=== PATIENT | female | born 1985 | race Caucasian/White ===

== ENCOUNTER 2017-02-28 20:18 | Emergency (ER) | payer OTHER ==
[2017-02-28] MEDS ORDERED: NS 1,000 ML IV ONE (20:28)
--- NOTE | 2017-02-28 21:13 | EDPHY ---
H & P Stated Complaint: Chills, V&D, stomach cramps since 1500hours. Time Seen by Provider: 02/28/17 20:41 HPI/ROS: This patient has a 6 hour history of diffuse abdominal cramping and vomiting with diarrhea. She reports concurrent onset of diffuse crampy abdominal discomfort mild intensity with several episodes of vomiting and loose watery stools. She now feels sense of generalized weakness associated with her symptoms. Her recent history is notable for clindamycin antibiotic day 10 for sinusitis recently diagnosed by her primary care physician. She notes no exacerbating factors for her abdominal symptoms. Her sinus symptoms have resolved. ROS: No high fevers or chills. She does report some low-grade subjective fevers. HEENT: No sinus pain at this point. No ear pain. No sore throat. No other complaints Neuro: No headache. No focal complaints Pulmonary: No cough. No shortness of breath. Cardiovascular: She reports lightheadedness this afternoon. GI: No bloody stools or dark tarry stools. No hematemesis. No focal pain in her belly. She is not tolerating p.o. intake today since 3:00 p.m. : No urinary symptoms. Last menstrual period was normal timing 20 days ago. Integumentary: No skin rash Endocrine: No symptoms Complete review of symptoms is otherwise negative. Source: Patient, Family (She is accompanied by her ) Exam Limitations: No limitations - Personal History LMP (Females 10-55): 15-21 Days Ago Current Tetanus/Diphtheria Vaccine: Yes Current Tetanus Diphtheria and Acellular Pertussis (TDAP): Yes Tetanus Vaccine Date: 2010 - Medical/Surgical History PMH: G 3 P2 Otherwise healthy. No abdominal surgeries Recent sinusitis treated with clindamycin antibiotic-day 10 Hx Asthma: No Hx Chronic Respiratory Disease: No Hx Diabetes: No Hx Cardiac Disease: No Hx Renal Disease: No Hx Cirrhosis: No Hx Alcoholism: No Hx HIV/AIDS: No Hx Splenectomy or Spleen Trauma: No Other PMH: anxiety, sinus infection at present, asthma. - Family History Significant Family History: No pertinent family hx - Social History Smoking Status: Never smoked Alcohol Use: Rarely Drug Use: None - Physical Exam Exam: General Appearance: Alert, no distress. Eyes: Pupils equal and round no pallor or injection. ENT, Mouth: Mucous membranes moist. Respiratory: There are no retractions, lungs are clear to auscultation. Cardiovascular: Regular rate and rhythm. No murmur gallop or rub Gastrointestinal: Hypoactive bowel sounds, soft, no focal tenderness. Organomegaly. Back: No CVA tenderness Neurological: GCS 15 with no focal deficits. Skin: Warm and dry, no rashes. Musculoskeletal: Neck is supple nontender. Extremities are symmetrical, full range of motion. Psychiatric: Mood and affect normal DIFFERENTIAL DIAGNOSIS: After history and physical exam differential diagnosis was considered for C diff colitis, viral gastroenteritis, food poisoning, dehydration Constitutional: Initial Vital Signs Temperature (C) 37.0 C 02/28/17 20:21 Heart Rate 87 02/28/17 20:21 Respiratory Rate 16 02/28/17 20:21 Blood Pressure 92/67 L 02/28/17 20:21 O2 Sat (%) 97 02/28/17 20:21 O2 Delivery Mode Room Air Allergies/Adverse Reactions: clarithromycin [From Biaxin] Allergy (Intermediate, Verified 02/28/17 20:24) Rash Penicillins Allergy (Intermediate, Verified 02/28/17 20:24) Rash Home Medications: Medication Instructions Recorded Lexapro 02/28/17 Promethazine 25Mg Supp Prepk#4 1 btl TAKEHOME Q6 PRN #1 btl 02/28/17 [Phenergan 25Mg Supp Prepack#4] Vancomycin [Vancomycin (*)] 125 mg PO QID #56 cap 02/28/17 Medical Decision Making ED Course/Re-evaluation: IV attempts x2 failed 3rd IV attempt success 1 L normal saline bolus with subjective improvement in her symptoms and systolic pressure improved increased from 92-105. She also has significant leukocytosis but does not meet sepsis criteria. She has some relief of her nausea with Benadryl and Ativan. (held Zofran due to Lexapro) Stool sample [id number] bloody, concerning clinically for C diff. Discussion: Patient just unclear 10 days of clindamycin now with bloody foul- smelling diarrhea, leukocytosis vomiting and diarrhea concerning for C diff colitis. I spoke with Telma Lopez, infectious disease specialist who agrees with the plan to treat her clinically for C diff colitis with pathogen panel pending and should be back tomorrow. We do not have vancomycin 125 orally present in the clinic so treated her with 1st dose of Flagyl 500 mg p. o. with plan for start the Vanco in the morning - Data Points Laboratory Results: Laboratory Results 02/28/17 21:43 02/28/17 21:43 02/28/17 02/28/17 02/28/17 21:43 21:43 21:43 WBC 19.25 10^3/uL H 10^3/uL (3.80-9.50) RBC 5.10 10^6/uL 10^6/uL (4.18-5.33) Hgb 15.7 g/dL g/dL (12.6-16.3) Hct 45.0 % % (38.0-47.0) MCV 88.2 fL fL (81.5-99.8) MCH 30.8 pg pg (27.9-34.1) MCHC 34.9 g/dL g/dL (32.4-36.7) RDW 12.2 % % (11.5-15.2) Plt Count 211 10^3/uL 10^3/uL (150-400) MPV 9.6 fL fL (8.7-11.7) Neut % (Auto) 93.5 % H % (39.3-74.2) Lymph % (Auto) 2.0 % L % (15.0-45.0) [place] % (Auto) 3.8 % L % (4.5-13.0) Eos % (Auto) 0.1 % L % (0.6-7.6) Baso % (Auto) 0.2 % L % (0.3-1.7) Nucleat RBC Rel Count 0.0 % % (0.0-0.2) Absolute Neuts (auto) 18.03 10^3/uL H 10^3/uL (1.70-6.50) Absolute Lymphs (auto) 0.38 10^3/uL L 10^3/uL (1.00-3.00) Absolute Monos (auto) 0.73 10^3/uL 10^3/uL (0.30-0.80) Absolute Eos (auto) 0.01 10^3/uL L 10^3/uL (0.03-0.40) Absolute Basos (auto) 0.03 10^3/uL 10^3/uL (0.02-0.10) Absolute Nucleated RBC 0.00 10^3/uL 10^3/uL (0-0.01) Immature Gran % 0.4 % % (0.0-1.1) Immature Gran # 0.07 10^3/uL 10^3/uL (0.00-0.10) Sodium 142 mEq/L mEq/L (134-144) Potassium 4.4 mEq/L mEq/L (3.5-5.2) Chloride 102 mEq/L mEq/L (97-110) Carbon Dioxide 22 mEq/l mEq/l (22-31) Anion Gap 18 mEq/L H mEq/L (8-16) BUN 16 mg/dL mg/dL (7-23) Creatinine 0.7 mg/dL mg/dL (0.6-1.0) Estimated GFR > 60 Glucose 138 mg/dL H mg/dL (70-100) Calcium 9.8 mg/dL mg/dL (8.5-10.4) Beta HCG, Qual NEGATIVE Urine Color Urine Appearance Urine pH Ur Specific Kite Urine Protein Urine Ketones Urine Blood Urine Nitrate Urine Bilirubin Urine Urobilinogen Ur Leukocyte Esterase Urine RBC Urine WBC Ur Epithelial Cells Amorphous Sediment Urine Bacteria Urine Mucus Urine Glucose 02/28/17 21:15 WBC RBC Hgb Hct MCV MCH MCHC RDW Plt Count MPV Neut % (Auto) Lymph % (Auto) [place] % (Auto) Eos % (Auto) Baso % (Auto) Nucleat RBC Rel Count Absolute Neuts (auto) Absolute Lymphs (auto) Absolute Monos (auto) Absolute Eos (auto) Absolute Basos (auto) Absolute Nucleated RBC Immature Gran % Immature Gran # Sodium Potassium Chloride Carbon Dioxide Anion Gap BUN Creatinine Estimated GFR Glucose Calcium Beta HCG, Qual Urine Color YELLOW Urine Appearance CLEAR Urine pH 5.5 (5.0-7.5) Ur Specific [place]ite >= 1.030 (1.002-1.030) Urine Protein TRACE H (NEGATIVE) Urine Ketones 1+ H (NEGATIVE) Urine Blood NEGATIVE (NEGATIVE) Urine Nitrate NEGATIVE (NEGATIVE) Urine Bilirubin NEGATIVE (NEGATIVE) Urine Urobilinogen 0.2 EU EU (0.2-1.0) Ur Leukocyte Esterase NEGATIVE (NEGATIVE) Urine RBC 0-1 /hpf /hpf (0-3) Urine WBC 0-1 /hpf /hpf (0-3) Ur Epithelial Cells 2+ /lpf H /lpf (NONE-1+) Amorphous Sediment 2+ /hpf H /hpf (NONE-1+) Urine Bacteria 1+ /hpf H /hpf (NONE SEEN) Urine Mucus 2+ /lpf H /lpf (NONE-1+) Urine Glucose NEGATIVE (NEGATIVE) Medications Given: Discontinued Medications Diphenhydramine HCl (Benadryl Injection) 25 mg IVP EDNOW ONE Stop: 02/28/17 21:08 Last Admin: 02/28/17 21:48 Dose: 25 mg Sodium Chloride (Ns) 1,000 mls @ 0 mls/hr IV ONCE ONE PRN Reason: Wide Open Stop: 02/28/17 20:29 Last Admin: 02/28/17 21:42 Dose: 1,000 mls Departure - Departure Disposition: Home, Routine, Self-Care Clinical Impression: C. difficile enteritis Condition: Good Instructions: [facility] Clostridium Difficile Infection, Patient Information Sheet Additional Instructions: Diagnosis: C diff enteritis Plan: Drink plenty fluids Light diet to feel improved Start vancomycin antibiotic orally in the morning Phenergan suppository if needed for nausea or vomiting. If this does not suffice for nausea, then Kendall ODDeena Call your primary care physician to arrange follow-up appointment for a recheck sometime within the next 2-5 days. Follow up with Dr. Telma oLpez-infectious disease if you're not improving with treatment plan. Referrals: Nicole Kaiser MD [Primary Care Provider] - As per Instructions Telma Lopez MD [Medical Doctor] - As per Instructions Prescriptions: Promethazine 25Mg Supp Prepk#4 [Phenergan 25Mg Supp Prepack#4] 1 btl TAKEHOME Q6 PRN #1 btl PRN Reason: vomiting Vancomycin [Vancomycin (*)] 125 mg PO QID #56 cap
[2017-02-28 21:50] LABS: % IMMATURE GRANULYOCYTES 0.4 % (0.0-1.1); ABSOLUTE IMMATURE GRANULOCYTES 0.07 10^3/uL (0.00-0.10); ADD DIFF? NO; ADD MORPH? NO; ADD SCAN? NO; ATYPICAL LYMPHOCYTE FLAG 0 (0-99); FRAGMENT RBC FLAG 0 (0-99); HEMOGLOBIN 15.7 g/dL (12.6-16.3); LEFT SHIFT FLG 0 (0-99); LIPEMIA HEMOLYSIS FLAG 90 (0-99); MEAN CELL HEMOGLOBIN 30.8 pg (27.9-34.1); MEAN CELL HEMOGLOBIN CONCENTR. 34.9 g/dL (32.4-36.7); MEAN CELL VOLUME 88.2 fL (81.5-99.8); MEAN PLATELET VOLUME 9.6 fL (8.7-11.7); PLATELET CLUMPS FLAG 0 (0-99); PLATELET COUNT 211 10^3/uL (150-400); RED CELL DISTRIBUTION WIDTH 12.2 % (11.5-15.2)
[2017-02-28 22:03] LABS: ANION GAP 18 mEq/L (8-16); CALCIUM 9.8 mg/dL (8.5-10.4); CARBON DIOXIDE 22 mEq/l (22-31); CHLORIDE 102 mEq/L (97-110); CREATININE 0.7 mg/dL (0.6-1.0); GLOMERULAR FILTRATION RATE > 60; GLUCOSE 138 mg/dL (70-100); POTASSIUM 4.4 mEq/L (3.5-5.2); SODIUM 142 mEq/L (134-144)
[2017-02-28 22:19] LABS: COLOR YELLOW; LEUKOCYTE ESTERASE,URINE NEGATIVE (NEGATIVE); NITRITE,URINE NEGATIVE (NEGATIVE); PH,URINE 5.5 (5.0-7.5)
[2017-02-28] MEDS ORDERED: LORazepam 2 MG/ML INJ IVP ONE (22:20)
[2017-02-28 22:29] LABS: AMORPHOUS 2+ /hpf (NONE-1+); BACTERIA 1+ /hpf (NONE SEEN); MUCUS 2+ /lpf (NONE-1+); RBC,URINE 0-1 /hpf (0-3); WBC,URINE 0-1 /hpf (0-3)
[2017-02-28] MEDS ORDERED: ONDANSETRON 4MG PREPACK#2 BTL TAKEHOME ONE (22:35)
[2017-02-28] MEDS ORDERED: metroNIDAZOLE 500 MG TAB PO ONE (22:41)
[2017-02-28] MEDS ORDERED: PROMETHAZINE 25MG SUPP PREPK#4 BTL TAKEHOME ONE (23:15)
[2017-03-01 00:08] VITALS: BP 110/57; PULSE 87; RESP 18; TEMP 99.5; O2SAT 96
== END 2017-02-28 23:30 | disposition home or self-care (01) ==
LOC: CED 20:18
DX: A04.7 Enterocolitis due to Clostridium difficile (principal)
CPT/HCPCS: 80048-PO; 81003-PO; 81015-PO; 84703-PO; 85025-PO; 96374; J1200; J2060